=== PATIENT | female | born 2000 | race African-American/Black ===

== ENCOUNTER 2022-08-17 20:20 | Emergency (ER) | payer OTHER, SELFPAY ==
--- NOTE | 2022-08-17 | ECG_ITS ---
Test Reason : AMS Blood Pressure : / mmHG Vent. Rate : 079 BPM Atrial Rate : 079 BPM P-R Int : 224 ms QRS Dur : 076 ms QT Int : 360 ms P-R-T Axes : -08 050 020 degrees QTc Int : 412 ms Sinus rhythm with 1st degree A-V block Otherwise normal ECG No previous ECGs available Referred By: Generic ED Physician Electronically Signed By:SEVERIANO MARTINEZ MD
[2022-08-17 21:24] VITALS: BP 112/77; PULSE 77; RESP 16; TEMP 36.7; O2SAT 100; BMI 37.6
--- NOTE | 2022-08-17 21:56 | ED_ITS ---
HPI - Psych General Chief Complaint: Psychiatric Symptoms Stated Complaint: depression states she wants to kill herselg Time Seen by Provider: 08/17/22 21:52 Source: patient Mode of arrival: ambulatory Limitations: no limitations History of Present Illness HPI Narrative: 22-year-old female presents to the emergency department with feelings of depression and suicidal ideations times a few weeks. Patient reports she does not want to live anymore. However patient does not have a plan. Patient states she just had a baby 2 months ago. She tells me that this is her 2nd baby, she never had issues with depression after the 1st baby. She tells me she feels like this baby does not like her and there was not a connection between them. Baby is currently dad. Patient states she has adequate support at home. Denies HI. Denies visual, auditory, tactile hallucinations. Denies tobacco, alcohol, other drug use. Patient denies any medical complaints at this time. Related Data Home Medications Medication Instructions Recorded Confirmed acetazolamide 500 mg 1 cap PO Q12H 08/17/22 08/17/22 capsule,extended release Allergies Allergy/AdvReac Type Severity Reaction Status Date / Time Unable to Assess Allergy Unverified 08/17/22 21:59 Review of Systems Review of Systems: Constitutional : No Weight loss, No Fever, No Chills, No Fatigue, No Malaise ENT/Mouth : No sore throat, No Rhinorrhea Eyes: No Eye Pain, No Swelling, No Redness Cardiovascular : No Chest Pain, No SOB, No Dyspnea on Exertion, No Orthopnea, No Edema, No Palpitations Respiratory : No Cough, No Sputum, No Wheezing Gastrointestinal : No Nausea, No Vomiting, No Diarrhea, No Constipation, No abdominal Pain, No Hematochezia, No Melena Genitourinary : No Dysuria, No Urinary Frequency, No Hematuria, Musculoskeletal : No joint pain, No Myalgias, No Joint Swelling Skin : No Skin Lesions, No rash Neuro : No Weakness, No Numbness, No Dizziness, No Headache Psych : No Anxiety/Panic, + Depression, + SI, No HI All other systems reviewed and are negative Yes all other systems are reviewed and are negative [facility] Past Medical History Attestation statement: The following information was validated with the patient. Source: old records reviewed and nursing notes reviewed Social History Social History Alcohol intake: never Patient Tobacco Use Status: Never used Tobacco Use of substances other than those prescribed or required for medical reasons: No Advance Directives: No Advance Directives Information Provided: No Patient : No Physical Exam Vital Signs: Vital Signs: Last Vital Signs Temp 97.6 F 08/17/22 22:24 Pulse 72 08/17/22 22:24 Resp 16 08/17/22 22:24 BP 131/71 08/17/22 22:24 Pulse Ox 98 08/17/22 22:24 O2 Del Method 08/17/22 22:24 BMI result Body Mass Index 37.6 vss Appearance: Alert.? Oriented X3.? No acute distress.? Head: Normocephalic, atraumatic, no step-offs or deformities Eyes: Pupils equal, round and reactive to light.? ENT: Pharynx normal.?? Neck: Normal inspection.? Neck supple.? CVS: Normal heart rate and rhythm.? Pulses normal.? Respiratory: No respiratory distress.? Breath sounds normal.? Abdomen: Soft and nontender.? Skin: Skin warm and dry.? Normal skin color.? Normal skin turgor.? Extremities: No lower extremity edema.? No calf ttp. 5/5 strength to bilateral upper and lower extremities Neuro: Oriented X 3.? No motor deficit.? No sensory deficit. CN 2-12 intact Course Reevaluation(s) Reevaluation #1: CBC with a slight normocytic anemia, no reports of active bleeding, chemistry with no acute electrolyte abnormalities requiring intervention. UA clean without infection. Urine toxicology negative. Ethanol negative. COVID negative. EKG demonstrating a sinus rhythm with first-degree AV block. No ST elevations or inversions concerning for ischemia. No previous EKGs to compare with Time: 23:50 Reevaluation #2: At this time patient will be placed in physician observation to allow more time to be evaluated by the behavioral health team I suspect this is likely depression. Will continue to monitor at time observation was started patient common cooperative no acute distress stable vital signs. Time: 23:57 MDM - Psych MDM Narrative Medical decision making narrative: 2158 22 year old female presents w/ depression & SI. Patient is 2 months PE benign Plan med clearance and eval by [facility] Medical Records Attestation: I reviewed the patient's medical records. Lab Data Attestation: I reviewed the patient's lab results. Result diagrams: 08/17/22 21:47 08/17/22 21:47 Labs: Lab Results 08/17/22 08/17/22 08/17/22 Range/Units 21:47 21:47 22:15 WBC 8.7 (4.8-10.8) X10*3/uL RBC 3.69 L (4.20-5.50) X10*6/uL Hgb 10.3 L (12.0-16.0) g/dl Hct 33.5 L (37.0-47.0) % MCV 90.8 (80.0-98.0) fL MCH 27.9 (27.0-33.0) pg MCHC 30.7 L (31.0-35.0) g/dl RDW 14.6 (11.0-16.0) % Plt Count 461 H (160-400) X10*3/uL MPV 8.8 L (9.4-12.3) fL Absolute Nucleated RBC 0.000 (0.0-0.012) X10*3/uL Nucleated RBC % (auto) 0.0 (0.0-0.2) /100WBC Sodium 140 (135-145) mmol/L Potassium 4.3 (3.3-5.1) mmol/L Chloride 110 H (96-108) mmol/L Carbon Dioxide 19 L (22-29) mmol/L Anion Gap 15 (12-20) BUN 13 (9-16) mg/dL Creatinine 0.76 (0.5-1.4) mg/dL Estim Creat Clear Calc 167.6 Estimated GFR > 60 Random Glucose 102 (60-115) mg/dL Calcium 9.4 (8.4-10.2) mg/dL Magnesium 2.0 (1.6-2.6) mg/dL Total Bilirubin 0.9 (0.0-1.0) mg/dL AST 20 (5-31) U/L ALT 28 (0-31) U/L Alkaline Phosphatase 38 L (39-117) U/L Total Protein 7.1 (6.5-8.0) g/dL Albumin 4.3 (3.5-5.0) g/dL Urine Color Yellow Urine Appearance Cloudy Urine pH 6.0 (5.0-9.0) Ur Specific [place] 1.020 (1.005-1.025) Urine Protein Negative (Neg-Trace) mg/dL Urine Glucose (UA) Negative (Negative) mg/dL Urine Ketones Negative (Negative) mg/dL Urine Blood Negative (Negative) Urine Nitrite Negative (Negative) Ur Leukocyte Esterase Small (1+) H (Negative) Urine RBC 0-2 (0-2) /HPF Urine WBC 11-20 H (0-5) /HPF Ur Squamous Epith Cells 11-20 (0-2) /HPF Urine Bacteria 2+ (None Seen) Hyaline Casts 0-2 (0-2) /LPF Urine Opiates Screen (Not Detect) Urine Fentanyl Screen (Not Detect) Ur Barbiturates Screen (Not Detect) Ur Phencyclidine Scrn (Not Detect) Ur Amphetamines Screen (Not Detect) U Benzodiazepines Scrn (Not Detect) Urine Cocaine Screen (Not Detect) U Marijuana (THC) Screen (Not Detect) Ethyl Alcohol < 10 mg/dL COVID-19 (BREANNE) (Negative) COVID-19 Clin Com 08/17/22 08/17/22 Range/Units 22:15 22:22 WBC (4.8-10.8) X10*3/uL RBC (4.20-5.50) X10*6/uL Hgb (12.0-16.0) g/dl Hct (37.0-47.0) % MCV (80.0-98.0) fL MCH (27.0-33.0) pg MCHC (31.0-35.0) g/dl RDW (11.0-16.0) % Plt Count (160-400) X10*3/uL MPV (9.4-12.3) fL Absolute Nucleated RBC (0.0-0.012) X10*3/uL Nucleated RBC % (auto) (0.0-0.2) /100WBC Sodium (135-145) mmol/L Potassium (3.3-5.1) mmol/L Chloride (96-108) mmol/L Carbon Dioxide (22-29) mmol/L Anion Gap (12-20) BUN (9-16) mg/dL Creatinine (0.5-1.4) mg/dL Estim Creat Clear Calc Estimated GFR Random Glucose (60-115) mg/dL Calcium (8.4-10.2) mg/dL Magnesium (1.6-2.6) mg/dL Total Bilirubin (0.0-1.0) mg/dL AST (5-31) U/L ALT (0-31) U/L Alkaline Phosphatase (39-117) U/L Total Protein (6.5-8.0) g/dL Albumin (3.5-5.0) g/dL Urine Color Urine Appearance Urine pH (5.0-9.0) Ur Specific [place] (1.005-1.025) Urine Protein (Neg-Trace) mg/dL Urine Glucose (UA) (Negative) mg/dL Urine Ketones (Negative) mg/dL Urine Blood (Negative) Urine Nitrite (Negative) Ur Leukocyte Esterase (Negative) Urine RBC (0-2) /HPF Urine WBC (0-5) /HPF Ur Squamous Epith Cells (0-2) /HPF Urine Bacteria (None Seen) Hyaline Casts (0-2) /LPF Urine Opiates Screen Not Detected (Not Detect) Urine Fentanyl Screen Not Detected (Not Detect) Ur Barbiturates Screen Not Detected (Not Detect) Ur Phencyclidine Scrn Not Detected (Not Detect) Ur Amphetamines Screen Not Detected (Not Detect) U Benzodiazepines Scrn Not Detected (Not Detect) Urine Cocaine Screen Not Detected (Not Detect) U Marijuana (THC) Screen Not Detected (Not Detect) Ethyl Alcohol mg/dL COVID-19 (BREANNE) Negative (Negative) COVID-19 Clin Com See Note Critical Care Time Critical Care Time Critical Care Time: No Discharge Plan Discharge Clinical Impression: Post depression, AV bloc first degree Patient Disposition: Still a Patient Prescriptions: No Action acetazolamide 500 mg capsule, extended release 1 cap PO Q12H
[2022-08-17 22:02] LABS: Hematocrit 33.5 % (37.0-47.0); Hemoglobin 10.3 g/dl (12.0-16.0); Mean Corpuscular HGB Conc 30.7 g/dl (31.0-35.0); Mean Corpuscular Hemoglobin 27.9 pg (27.0-33.0); Mean Corpuscular Volume 90.8 fL (80.0-98.0); Mean Platelet Volume 8.8 fL (9.4-12.3); Platelet Count 461 X10*3/uL (160-400); Red Blood Count 3.69 X10*6/uL (4.20-5.50); Red Cell Distribution Width 14.6 % (11.0-16.0); White Blood Count 8.7 X10*3/uL (4.8-10.8)
[2022-08-17 22:21] LABS: Alanine Aminotransferase 28 U/L (0-31); Albumin Level 4.3 g/dL (3.5-5.0); Alkaline Phosphatase 38 U/L (39-117); Anion Gap 15 (12-20); Aspartate Amino Transferase 20 U/L (5-31); Bilirubin Total 0.9 mg/dL (0.0-1.0); Blood Urea Nitrogen 13 mg/dL (9-16); Calcium 9.4 mg/dL (8.4-10.2); Carbon Dioxide 19 mmol/L (22-29); Chloride 110 mmol/L (96-108); Creatinine Clr Calc Pharmacy 167.6; Estimated Glomerular Filt Rate > 60; Glucose Random 102 mg/dL (60-115); Potassium 4.3 mmol/L (3.3-5.1); Sodium 140 mmol/L (135-145); Total Protein 7.1 g/dL (6.5-8.0)
[2022-08-17 22:21] LABS: Appearance Urine Cloudy; Color Urine Yellow; Glucose Urine UA Negative (Negative); Leukocyte Esterase Urine Small (1+) (Negative); Nitrite Urine Negative (Negative); UMIC TRIGGER UACC YES; Urine Blood Negative (Negative); Urine Ketones Negative (Negative); Urine Protein Negative (Neg-Trace)
[2022-08-17 22:24] VITALS: BP 131/71; PULSE 72; RESP 16; TEMP 36.4; O2SAT 98
[2022-08-17] MEDS: LORazepam 1 MG TABLET PO (22:25)
[2022-08-17 22:26] LABS: Bacteria Urine 2+ (None Seen); Hyaline Casts Urine 0-2 /LPF (0-2); RBC Urine 0-2 /HPF (0-2); UACC Culture Trigger YES
[2022-08-17 22:33] LABS: Ethanol < 10 mg/dL
[2022-08-17 22:36] LABS: Amphetamine Screen Urine Not Detected (Not Detect); Barbiturates, Urine Not Detected (Not Detect); Benzodiazepines Screen Urine Not Detected (Not Detect); Cannabinoid Screen Urine Not Detected (Not Detect); Cocaine Screen Urine Not Detected (Not Detect); Fentanyl, urine Not Detected (Not Detect); Opiate Screen Urine Not Detected (Not Detect); Phencyclidine Screen Urine Not Detected (Not Detect)
[2022-08-17 22:42] LABS: COVID-19 Test Negative (Negative); IDNOW Serial# 16C4AD1C
--- NOTE | 2022-08-17 22:47 | PHA.MEDREC ---
Pharmacy Consult ? Medication Reconciliation Pharmacy has completed the medication reconciliation.
[2022-08-18] VITALS: BP 119/63; PULSE 71; RESP 16; TEMP 36.2; O2SAT 98
--- NOTE | 2022-08-18 00:05 | PC.NURSE ---
pt said she was hungry ,chicken salad sandwich ,vanilla pudding and jason emilia given ,vs taken ,family member at bedside along with sitter .
--- NOTE | 2022-08-18 01:50 | PC.NURSE ---
Crisis Referral completed at this time.
--- NOTE | 2022-08-18 06:12 | PC.NURSE ---
Patient slept through the night, no distress observed/reported, independent ambulation, patient engaged well with [facility], disposition partial hospitalization program in the morning, mother will come pick her up, discharge paper work is ready, VSS, behavior non concerning, will continue to monitor.
--- NOTE | 2022-08-18 08:28 | PC.NURSE ---
Patient resting, resp unlabored.
[2022-08-18 10:33] VITALS: BP 110/64; PULSE 82; RESP 16; TEMP 36.3; O2SAT 99
== END 2022-08-18 10:58 | disposition home or self-care (01) ==
PROVIDERS: Physician Assistant; Emergency Provider Internal Medicine
DX: O99.345 Other mental disorders complicating the puerperium (principal); F53.0 Postpartum depression; I44.0 Atrioventricular block, first degree; R45.851 Suicidal ideations; D64.9 Anemia, unspecified; Z20.822 Contact with and (suspected) exposure to COVID-19; Z79.899 Other long term (current) drug therapy
CPT/HCPCS: 36415; 80053; 80307; 81001; 82077; 83735; 85027; 87086; 87635; 93005; 99285

== ENCOUNTER 2022-08-18 13:48 | Outpatient (RCR) | payer OTHER, SELFPAY | END 2022-08-18 23:59 | disposition admitted as inpatient to this hospital (09) | LOC: HO.PHPA 13:48 | PROVIDERS: Visit Provider Psychiatry & Neurology Psychiatry | DX: F33.1 Major depressive disorder, recurrent, moderate (principal); F41.1 Generalized anxiety disorder | CPT/HCPCS: 90791 ==

== ENCOUNTER 2022-08-19 18:04 | Inpatient (IN) | payer OTHER, SELFPAY ==
[2022-08-19 19:23] VITALS: BP 146/80; PULSE 80; RESP 18; TEMP 36.8; O2SAT 100; BMI 39.0
[2022-08-19 20:07] LABS: Appearance Urine Cloudy; Color Urine Yellow; Glucose Urine UA Negative (Negative); Leukocyte Esterase Urine Negative (Negative); Nitrite Urine Positive (Negative); UMIC TRIGGER UACC YES; Urine Blood Negative (Negative); Urine Ketones Negative (Negative); Urine Protein Negative (Neg-Trace)
[2022-08-19 20:08] LABS: UPreg QC Valid YES; Urine Pregnancy NEGATIVE (NEGATIVE)
[2022-08-19 20:12] LABS: Bacteria Urine 4+ (None Seen); Hyaline Casts Urine 0-2 /LPF (0-2); RBC Urine 0-2 /HPF (0-2); UACC Culture Trigger YES; WBC Urine 0-5 /HPF (0-5)
[2022-08-19 20:18] LABS: COVID-19 Test Negative (Negative)
[2022-08-19 20:21] LABS: Amphetamine Screen Urine Not Detected (Not Detect); Barbiturates, Urine Not Detected (Not Detect); Benzodiazepines Screen Urine Not Detected (Not Detect); Cannabinoid Screen Urine Not Detected (Not Detect); Cocaine Screen Urine Not Detected (Not Detect); Fentanyl, urine Not Detected (Not Detect); Opiate Screen Urine Not Detected (Not Detect); Phencyclidine Screen Urine Not Detected (Not Detect)
--- NOTE | 2022-08-19 22:15 | ED_ITS ---
HPI - Psych General Chief Complaint: Psychiatric Symptoms Stated Complaint: sent by for evaluation Time Seen by Provider: 08/19/22 22:00 History of Present Illness HPI Narrative: patient is a 22-year-old male presented today with having depression status after giving . Patient has a history of approximately 2 months ago. Not sleeping not eating feeling increasing stress. Patient was evaluated previously. Recommended for outpatient program. However patient got agitated. Patient denies any suicidal homicidal ideation denies any alcohol. Claims the child do fine. She will consult with her father. Patient denies any fever chills cough and production of breath symptoms. Related Data Home Medications Medication Instructions Recorded Confirmed acetazolamide 500 mg 1 cap PO Q12H 08/19/22 08/19/22 capsule,extended release Allergies Allergy/AdvReac Type Severity Reaction Status Date / Time No Known Allergies Allergy Verified 08/19/22 19:26 Review of Systems Review of Systems: No fever no chills no chest pain or shortness breath no nausea no vomiting Yes all other systems are reviewed and are negative [facility] Past Medical History Attestation statement: The following information was validated with the patient. Social History Social History Household Members: Significant Other, Children and Other Household Members Other:: Partner's step-mother Alcohol intake: never Patient Tobacco Use Status: Never used Tobacco Physical Exam Vital Signs: Vital Signs: Last Vital Signs Temp 98.2 F 08/19/22 19:23 Pulse 80 08/19/22 19:23 Resp 18 08/19/22 19:23 BP 146/80 H 08/19/22 19:23 Pulse Ox 100 08/19/22 19:23 O2 Del Method 08/19/22 19:23 BMI result Body Mass Index 39.0 Appearance: Alert. Oriented X3. No acute distress. Eyes: Pupils equal, round and reactive to light. ENT: Pharynx normal. Neck: Normal inspection. Neck supple. No lymph nodes noted. No crepitus CVS: Normal heart rate and rhythm. Pulses normal. Normal S1 and S2 Respiratory: No respiratory distress. Breath sounds normal. No Wheezing. No rales Abdomen: Soft and nontender. No rigidity. No distention. good BS x4 Skin: Skin warm and dry. Normal skin color. Normal skin turgor. Extremities: No lower extremity edema. Neurovascular intact to all extremities. No Lacerations. No Rash Neuro: Oriented X 3. No motor deficit. No sensory deficit. Moving all extermities. No slurred speech. Cranial nerves grossly intact MDM - Psych MDM Narrative Medical decision making narrative: currently medically cleared. Awaiting crisis evaluation. Symptoms likely secondary to depression. Medical Records Attestation: I reviewed the patient's medical records. Lab Data Attestation: I reviewed the patient's lab results. Labs: Lab Results 08/19/22 08/19/22 08/19/22 Range/Units 19:49 19:49 19:49 Urine Color Yellow Urine Appearance Cloudy Urine pH 6.0 (5.0-9.0) Ur Specific [place] 1.020 (1.005-1.025) Urine Protein Negative (Neg-Trace) mg/dL Urine Glucose (UA) Negative (Negative) mg/dL Urine Ketones Negative (Negative) mg/dL Urine Blood Negative (Negative) Urine Nitrite Positive H (Negative) Ur Leukocyte Esterase Negative (Negative) Urine RBC 0-2 (0-2) /HPF Urine WBC 0-5 (0-5) /HPF Ur Squamous Epith Cells 6-10 (0-2) /HPF Urine Bacteria 4+ (None Seen) Hyaline Casts 0-2 (0-2) /LPF Urine Test NEGATIVE (NEGATIVE) Urine Opiates Screen (Not Detect) Urine Fentanyl Screen (Not Detect) Ur Barbiturates Screen (Not Detect) Ur Phencyclidine Scrn (Not Detect) Ur Amphetamines Screen (Not Detect) U Benzodiazepines Scrn (Not Detect) Urine Cocaine Screen (Not Detect) U Marijuana (THC) Screen (Not Detect) COVID-19 (BREANNE) Negative (Negative) COVID-19 Clin Com See Note 08/19/22 Range/Units 19:49 Urine Color Urine Appearance Urine pH (5.0-9.0) Ur Specific [place] (1.005-1.025) Urine Protein (Neg-Trace) mg/dL Urine Glucose (UA) (Negative) mg/dL Urine Ketones (Negative) mg/dL Urine Blood (Negative) Urine Nitrite (Negative) Ur Leukocyte Esterase (Negative) Urine RBC (0-2) /HPF Urine WBC (0-5) /HPF Ur Squamous Epith Cells (0-2) /HPF Urine Bacteria (None Seen) Hyaline Casts (0-2) /LPF Urine Test (NEGATIVE) Urine Opiates Screen Not Detected (Not Detect) Urine Fentanyl Screen Not Detected (Not Detect) Ur Barbiturates Screen Not Detected (Not Detect) Ur Phencyclidine Scrn Not Detected (Not Detect) Ur Amphetamines Screen Not Detected (Not Detect) U Benzodiazepines Scrn Not Detected (Not Detect) Urine Cocaine Screen Not Detected (Not Detect) U Marijuana (THC) Screen Not Detected (Not Detect) COVID-19 (BREANNE) (Negative) COVID-19 Clin Com Discharge Plan Discharge Clinical Impression: Depression Patient Disposition: Still a Patient Prescriptions: No Action acetazolamide 500 mg capsule, extended release 1 cap PO Q12H
[2022-08-20 01:11] VITALS: BP 112/56; PULSE 80; RESP 16; TEMP 36.4; O2SAT 99
--- NOTE | 2022-08-20 02:38 | PC.NURSE ---
Patient in bed appears sleeping, no distress observed/reported, patient engaged well with [facility] clinician, disposition is section 12 inpatient bed search, med rec completed/pending provider's approval, behavior appropriate and non concerning, VSS, will continue to monitor.
--- NOTE | 2022-08-20 09:00 | PC.NURSE ---
pt seen by Care Team, inpatient admission voluntarily signed by pt. RN-RN report given to FERCHO Chang. pt aware of plan. she refused breakfast. pt resting quietly at this time.
[2022-08-20] MEDS: Nitrofurantoin Monohyd/M-Cryst 100 MG CAPSULE PO ×2 (09:21→20:43)
--- NOTE | 2022-08-20 09:58 | PC.NURSE ---
PT awake, compliant with med. PT did not answer when this verse writer attempted to do phys eval. Care Team at bedside.
[2022-08-20 11:26] VITALS: BP 130/57; PULSE 70; TEMP 36.8; O2SAT 99
[2022-08-20 12:01] VITALS: BP 109/58; PULSE 75; RESP 18; TEMP 36.4; O2SAT 100
--- NOTE | 2022-08-20 12:32 | P.HPPS_ITS ---
HPI Date of Service: 08/20/22 Chief Complaint: depression Sources of Information: patient interviewed, chart reviewed and crisis/core team assessment reviewed HPI Subjective Notes: Escobar Warning and Conditional Voluntary Narrative: Ms. Jett is a 22 year-old woman with hx of depression, no previous psychiatric tx or diagnosis who self presented to [facility] [place] ED at request of family. Pt gave to her second child 2 months ago. Since then, family reports that pt has presented as tearful, reporting suicidal ideation along with increase irritability, mood changes, aggression towards partner which is not her baseline. Utox is negative. On the unit, pt presents as withdrawn. She reports she has been feeling depressed, with intermittent suicidal thoughts. She does admit to increase aggression towards partner as well as yelling and slamming things around. She reports mother in law helps with caring with her new born. She reports restless night but over sleeping during the day. She endorses anhedonia, low energy, feeling tired. She denies VH/AH. Past Psychiatric History: Inpt: none OP: none Med trials: none Suicide attempts: none Medical Evaluation Reviewed: Yes Diagnostics Vital Signs (24Hr): Vital Signs - 24 hr 08/20/22 20:40 08/21/22 10:45 Temperature 97.9 F 97.6 F Pulse Rate 86 86 Respiratory Rate 16 14 Blood Pressure 100/57 L 121/57 L Pulse Oximetry 97 98 Oxygen Delivery Method Room Air Room Air BMI result Body Mass Index 39.0 Labs Results: 08/21/22 09:38 Labs: Laboratory Results - last 48 hr 08/19/22 08/19/22 08/19/22 19:49 19:49 19:49 Sodium Potassium Chloride Carbon Dioxide Anion Gap BUN Creatinine Estim Creat Clear Calc Estimated GFR Fasting Glucose Estimat Average Glucose Hemoglobin A1c % Calcium Total Bilirubin AST ALT Alkaline Phosphatase Total Protein Albumin Triglycerides Cholesterol LDL Cholesterol, Calc HDL Cholesterol Vitamin B12 Folate TSH Urine Color Yellow Urine Appearance Cloudy Urine pH 6.0 Ur Specific [place] 1.020 Urine Protein Negative Urine Glucose (UA) Negative Urine Ketones Negative Urine Blood Negative Urine Nitrite Positive H Ur Leukocyte Esterase Negative Urine RBC 0-2 Urine WBC 0-5 Ur Squamous Epith Cells 6-10 Urine Bacteria 4+ Hyaline Casts 0-2 Urine Test NEGATIVE Urine Opiates Screen Urine Fentanyl Screen Ur Barbiturates Screen Ur Phencyclidine Scrn Ur Amphetamines Screen U Benzodiazepines Scrn Urine Cocaine Screen U Marijuana (THC) Screen COVID-19 (BREANNE) Negative COVID-19 [employer] Com See Note 08/19/22 08/21/22 08/21/22 19:49 08:29 09:38 Sodium 139 Potassium 4.3 Chloride 109 H Carbon Dioxide 20 L Anion Gap 14 BUN 13 Creatinine 0.84 Estim Creat Clear Calc 154.6 Estimated GFR > 60 Fasting Glucose 130 H Estimat Average Glucose 91 Hemoglobin A1c % 4.8 Calcium 9.2 Total Bilirubin 0.9 AST 18 ALT 21 Alkaline Phosphatase 42 Total Protein 7.3 Albumin 4.2 Triglycerides 141 Cholesterol 131 LDL Cholesterol, Calc 77 HDL Cholesterol 26 Vitamin B12 Folate TSH 1.95 Urine Color Urine Appearance Urine pH Ur Specific [place] Urine Protein Urine Glucose (UA) Urine Ketones Urine Blood Urine Nitrite Ur Leukocyte Esterase Urine RBC Urine WBC Ur Squamous Epith Cells Urine Bacteria Hyaline Casts Urine Test Urine Opiates Screen Not Detected Urine Fentanyl Screen Not Detected Ur Barbiturates Screen Not Detected Ur Phencyclidine Scrn Not Detected Ur Amphetamines Screen Not Detected U Benzodiazepines Scrn Not Detected Urine Cocaine Screen Not Detected U Marijuana (THC) Screen Not Detected COVID-19 (BREANNE) COVID-19 Contractually 08/21/22 09:38 Sodium Potassium Chloride Carbon Dioxide Anion Gap BUN Creatinine Estim Creat Clear Calc Estimated GFR Fasting Glucose Estimat Average Glucose Hemoglobin A1c % Calcium Total Bilirubin AST ALT Alkaline Phosphatase Total Protein Albumin Triglycerides Cholesterol LDL Cholesterol, Calc HDL Cholesterol Vitamin B12 336 Folate 11.3 TSH Urine Color Urine Appearance Urine pH Ur Specific [place] Urine Protein Urine Glucose (UA) Urine Ketones Urine Blood Urine Nitrite Ur Leukocyte Esterase Urine RBC Urine WBC Ur Squamous Epith Cells Urine Bacteria Hyaline Casts Urine Test Urine Opiates Screen Urine Fentanyl Screen Ur Barbiturates Screen Ur Phencyclidine Scrn Ur Amphetamines Screen U Benzodiazepines Scrn Urine Cocaine Screen U Marijuana (THC) Screen COVID-19 (BREANNE) COVID-19 Contractually Meds/Allergies Meds Home Medications Medication Instructions Recorded Confirmed Type acetazolamide 500 mg 1 cap PO Q12H 08/19/22 08/19/22 History capsule,extended release Allergies Allergies Allergy/AdvReac Type Severity Reaction Status Date / Time No Known Allergies Allergy Verified 08/19/22 19:26 Mental Status Exam Mental Status Exam Narrative: Appearance: casually groomed, fair hygiene in NAD Behavior:cooperative psychomotor:no agitation or retardation noted Speech: clear, normal rate/rhythm/volume, spontaneous Thought process: linear Thought content:no s/s of psychosis, depressed, asking for help Mood: depressed Affect: blunted SI:none HI:none VH/AH:none Delusions:none Insight/judgment:fair x 2. Memory/cog: alert, oriented x 3. Assessment & Plan Assessment & Plan (1) Mood disorder: Status: Acute Code(s): F39 - Unspecified mood [affective] disorder Plan Ms. Jett is a 22 year-old woman with hx of depression but significant mood changes since she gave to her 2 child 2 months ago. Per family pt presents as more irritable, labile, along with pt reporting increase depression and ani cidal ideation. We discussed risks, benefits and alternative treatment options. We discussed that given elements of mood lability along with depression to do combination of mood stabilizer lithium and antidepressant remeron. We discussed possibility that this may be Bipolar disorder rather than unipolar post depression. PLAN 1. Admit to M3, 15 mins checks, CV. 2. Escobar warning given and understands. 3. Start lithium 150mg po daily and remeron 15mg po qhs. Patient educated on: diagnosis Reason for continued inpatient stay Substantial Risk for: harm to self and harm to others
--- NOTE | 2022-08-20 14:31 | PC.NURSE ---
Arielle was admitted to M3 at 1147 from [facility] [place] Pod on CV for treatment of depression.? Precipitant of admission include poor sleep, depression and anxiety following of daughter 2 months ago. Level of consciousness, orientation,? cooperative?Mood is depressed.Affect is anxious. She denies auditory, visual, tactile, other hallucinations. Thought process is slowed but appears organized with no delusions or paranoia apparent She denies Ideation, plan or intent to harm self or others. She reports poor appetite with no recent wt loss or gain. Sleep is poor in that she can fall asleep but struggles with frequent waking. Focus is good. She denies substance Issues with the exception of 3 servings of caffeine daily Medical Issues?include pseudotumor cerebri dx at age 8. 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 She denies physical complaint. She is on 15 min checks for safety.
[2022-08-20] MEDS: acetaZOLAMIDE 250 MG TABLET PO ×2 (15:52→20:43)
--- NOTE | 2022-08-20 17:28 | PC.NURSE ---
Arielle was admitted to M3 at 1147 from [facility] Pod on CV for treatment of depression.? Precipitant of admission include poor sleep, depression and anxiety following of daughter 2 months ago. She is fully oriented, pleasant and cooperative with admission process. Mood is depressed. Affect is anxious. She denies auditory, visual, tactile, other hallucinations. Thought process is slowed but appears organized with no delusions or paranoia apparent. She denies Ideation, plan or intent to harm self or others. She reports poor appetite with no recent wt loss or gain. Sleep is poor in that she can fall asleep but struggles with frequent waking. Focus is good. She denies substance Issues with the exception of 3 servings of caffeine daily Medical Issues?include pseudotumor cerebri dx at age 8. 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 She denies physical complaint. She is on 15 min checks for safety.
[2022-08-20 20:40] VITALS: BP 100/57; PULSE 86; RESP 16; TEMP 36.6; O2SAT 97
[2022-08-21] MEDS: Nitrofurantoin Monohyd/M-Cryst 100 MG CAPSULE PO ×2 (08:56→20:44)
[2022-08-21 09:24] LABS: Estimated Average Glucose 91 mg/dL; Hemoglobin A1c % 4.8 %
[2022-08-21 10:00] LABS: Alanine Aminotransferase 21 U/L (0-31); Albumin Level 4.2 g/dL (3.5-5.0); Alkaline Phosphatase 42 U/L (39-117); Anion Gap 14 (12-20); Aspartate Amino Transferase 18 U/L (5-31); Bilirubin Total 0.9 mg/dL (0.0-1.0); Blood Urea Nitrogen 13 mg/dL (9-16); Calcium 9.2 mg/dL (8.4-10.2); Carbon Dioxide 20 mmol/L (22-29); Chloride 109 mmol/L (96-108); Cholesterol 131 mg/dL; Creatinine Clr Calc Pharmacy 154.6; Estimated Glomerular Filt Rate > 60; Glucose Fasting 130 mg/dL (60-99); HDL Cholesterol 26 mg/dL; LDL Cholesterol Calculated 77 mg/dl; Potassium 4.3 mmol/L (3.3-5.1); Sodium 139 mmol/L (135-145); Total Protein 7.3 g/dL (6.5-8.0); Triglycerides 141 mg/dL
[2022-08-21 10:20] LABS: Thyroid Stimulating Hormone 1.95 uIU/mL (0.32-4.0)
[2022-08-21 10:45] VITALS: BP 121/57; PULSE 86; RESP 14; TEMP 36.4; O2SAT 98
[2022-08-21 10:47] LABS: Folate 11.3 ng/mL (> or = 4.0); Vitamin B12 336 pg/mL (200-900)
--- NOTE | 2022-08-21 13:54 | HO.PSYCHPN ---
Subjective Subjective Date of Service: 08/21/22 Reason For Visit: depression Subjective Notes: Conditional Voluntary Interim History: Pt reports feeling less overhwelmed. She reports she has underlying irritability but not to extend of last 2 months. She denies SI/HI. She denies VH/AH. She reports last night she felt restless, tossing and turning. No behavioral concerns. Medication Compliance: Yes Side effects from medications: No Attending Groups: Yes Review of Systems Review of Systems No fever no chills no chest pain or shortness breath no nausea no vomiting Yes all other systems are reviewed and are negative Mental Status Exam Mental Status Exam Narrative: Appearance: casually groomed, fair hygiene in NAD Behavior:cooperative psychomotor:no agitation or retardation noted Speech: clear, normal rate/rhythm/volume, spontaneous Thought process: linear Thought content:no s/s of psychosis, depressed, asking for help Mood: depressed Affect: blunted SI:none HI:none VH/AH:none Delusions:none Insight/judgment:fair x 2. Memory/cog: alert, oriented x 3. Diagnostics Vital Signs (24Hr): Vital Signs - 24 hr 08/20/22 20:40 08/21/22 10:45 Temperature 97.9 F 97.6 F Pulse Rate 86 86 Respiratory Rate 16 14 Blood Pressure 100/57 L 121/57 L Pulse Oximetry 97 98 Oxygen Delivery Method Room Air Room Air BMI result Body Mass Index 39.0 Labs Results: 08/21/22 09:38 Labs: Laboratory Results - last 48 hr 08/19/22 08/19/22 08/19/22 19:49 19:49 19:49 Sodium Potassium Chloride Carbon Dioxide Anion Gap BUN Creatinine Estim Creat Clear Calc Estimated GFR Fasting Glucose Estimat Average Glucose Hemoglobin A1c % Calcium Total Bilirubin AST ALT Alkaline Phosphatase Total Protein Albumin Triglycerides Cholesterol LDL Cholesterol, Calc HDL Cholesterol Vitamin B12 Folate TSH Urine Color Yellow Urine Appearance Cloudy Urine pH 6.0 Ur Specific [place] 1.020 Urine Protein Negative Urine Glucose (UA) Negative Urine Ketones Negative Urine Blood Negative Urine Nitrite Positive H Ur Leukocyte Esterase Negative Urine RBC 0-2 Urine WBC 0-5 Ur Squamous Epith Cells 6-10 Urine Bacteria 4+ Hyaline Casts 0-2 Urine Test NEGATIVE Urine Opiates Screen Urine Fentanyl Screen Ur Barbiturates Screen Ur Phencyclidine Scrn Ur Amphetamines Screen U Benzodiazepines Scrn Urine Cocaine Screen U Marijuana (THC) Screen COVID-19 (BREANNE) Negative COVID-19 [employer] Com See Note 08/19/22 08/21/22 08/21/22 19:49 08:29 09:38 Sodium 139 Potassium 4.3 Chloride 109 H Carbon Dioxide 20 L Anion Gap 14 BUN 13 Creatinine 0.84 Estim Creat Clear Calc 154.6 Estimated GFR > 60 Fasting Glucose 130 H Estimat Average Glucose 91 Hemoglobin A1c % 4.8 Calcium 9.2 Total Bilirubin 0.9 AST 18 ALT 21 Alkaline Phosphatase 42 Total Protein 7.3 Albumin 4.2 Triglycerides 141 Cholesterol 131 LDL Cholesterol, Calc 77 HDL Cholesterol 26 Vitamin B12 Folate TSH 1.95 Urine Color Urine Appearance Urine pH Ur Specific [place] Urine Protein Urine Glucose (UA) Urine Ketones Urine Blood Urine Nitrite Ur Leukocyte Esterase Urine RBC Urine WBC Ur Squamous Epith Cells Urine Bacteria Hyaline Casts Urine Test Urine Opiates Screen Not Detected Urine Fentanyl Screen Not Detected Ur Barbiturates Screen Not Detected Ur Phencyclidine Scrn Not Detected Ur Amphetamines Screen Not Detected U Benzodiazepines Scrn Not Detected Urine Cocaine Screen Not Detected U Marijuana (THC) Screen Not Detected COVID-19 (BREANNE) COVID-[employer] Com 08/21/22 09:38 Sodium Potassium Chloride Carbon Dioxide Anion Gap BUN Creatinine Estim Creat Clear Calc Estimated GFR Fasting Glucose Estimat Average Glucose Hemoglobin A1c % Calcium Total Bilirubin AST ALT Alkaline Phosphatase Total Protein Albumin Triglycerides Cholesterol LDL Cholesterol, Calc HDL Cholesterol Vitamin B12 336 Folate 11.3 TSH Urine Color Urine Appearance Urine pH Ur Specific [place] Urine Protein Urine Glucose (UA) Urine Ketones Urine Blood Urine Nitrite Ur Leukocyte Esterase Urine RBC Urine WBC Ur Squamous Epith Cells Urine Bacteria Hyaline Casts Urine Test Urine Opiates Screen Urine Fentanyl Screen Ur Barbiturates Screen Ur Phencyclidine Scrn Ur Amphetamines Screen U Benzodiazepines Scrn Urine Cocaine Screen U Marijuana (THC) Screen COVID-19 (BREANNE) COVID-19 [employer] Medications Medications Current Medications Acetaminophen (Acetaminophen 325 Mg Tablet) 650 mg PO Q6H PRN PRN Reason: Headache/Pain Mild Scale (1-3) Al Hydroxide/Mg Hydroxide (Magnesium Hydrox/Alum Hydrox 30 Ml Oral.Susp) 30 ml PO Q6H PRN PRN Reason: Heartburn/Nausea Hydroxyzine HCl (Hydroxyzine Hcl 25 Mg Tablet) 25 mg PO Q6H PRN PRN Reason: Anxiety [place] Carbonate ([place] Carbonate 300 Mg Capsule) 300 mg PO BID [facility] Magnesium Hydroxide (Milk Of Magnesia 30 Ml Oral.Susp) 30 ml PO DAILY PRN PRN Reason: Constipation Mirtazapine (Mirtazapine 15 Mg Tablet) 15 mg PO BEDTIME [facility] Nitrofurantoin Macrocrystals (Nitrofurantoin Monohyd/M-Cryst 100 Mg Capsule) 100 mg PO BID [facility]ON[facility] Stop: 08/22/22 21:01 Last Admin: 08/21/22 08:56 Dose: 100 mg Non-Formulary Medication (Acetazolamide) 1 cap PO Q12H RONI Non-Formulary Medication (Non-Formulary Medication) 500 each PO BID [facility] Trazodone HCl (Trazodone Hcl 50 Mg Tablet) 50 mg PO BEDTIME PRN PRN Reason: Insomnia Allergies Allergies Allergy/AdvReac Type Severity Reaction Status Date / Time No Known Allergies Allergy Verified 08/19/22 19:26 Assessment & Plan Assessment & Plan (1) Mood disorder: Status: Acute Code(s): F39 - Unspecified mood [affective] disorder Plan Ms. Jett is a 22 year-old woman with hx of depression but significant mood changes since she gave to her 2 child 2 months ago. Per family pt presents as more irritable, labile, along with pt reporting increase depression and suicidal ideation. We discussed risks, benefits and alternative treatment options. We discussed that given elements of mood lability along with depression to do combination of mood stabilizer lithium and antidepressant remeron. We discussed possibility that this may be Bipolar disorder rather than unipolar post depression. PLAN 1. Admit to M3, 15 mins checks, CV. 2. Escobar warning given and understands. 3. Start lithium 300mg po BID and remeron 15mg po qhs. 08/21 continue current medications. I spent minutes with the patient and/or on the patient floor today, greater than?50% of which was spent counseling/coordinating care. Reason for contiued inpatient stay Substantial Risk for: harm to self
[2022-08-21] MEDS: Lithium Carbonate 300 MG CAPSULE PO ×2 (14:28→20:44)
[2022-08-21 20:36] VITALS: BP 134/69; PULSE 78; RESP 16; TEMP 36.3; O2SAT 100
[2022-08-21] MEDS: Mirtazapine 15 MG TABLET PO (20:45)
[2022-08-22 08:05] VITALS: BP 126/62; PULSE 68; RESP 16; TEMP 36.6; O2SAT 100
[2022-08-22] MEDS: Nitrofurantoin Monohyd/M-Cryst 100 MG CAPSULE PO ×2 (08:52→22:18)
[2022-08-22] MEDS: Lithium Carbonate 300 MG CAPSULE PO ×2 (08:53→22:18)
--- NOTE | 2022-08-22 11:39 | HO.PSYCHPN ---
Subjective Subjective Date of Service: 08/22/22 Reason For Visit: depression Subjective Notes: Conditional Voluntary Interim History: Pt reports feeling calmer, still depressed. She reports she slept well, better than other times. She denies SI/HI. She has been visible on the unit, no behavioral concerns. No side effects with medications. Medication Compliance: Yes Side effects from medications: No Attending Groups: Yes Review of Systems Acute medical concerns: No Review of Systems Review of Systems No fever no chills no chest pain or shortness breath no nausea no vomiting Yes all other systems are reviewed and are negative Mental Status Exam Mental Status Exam Narrative: Appearance: casually groomed, fair hygiene in NAD Behavior:cooperative psychomotor:no agitation or retardation noted Speech: clear, normal rate/rhythm/volume, spontaneous Thought process: linear Thought content:no s/s of psychosis, depressed, asking for help Mood: depressed Affect: blunted SI:none HI:none VH/AH:none Delusions:none Insight/judgment:fair x 2. Memory/cog: alert, oriented x 3. Diagnostics Vital Signs (24Hr): Vital Signs - 24 hr 08/23/22 08:00 08/23/22 21:04 Temperature 97.7 F 97.8 F Pulse Rate 69 88 Respiratory Rate 18 16 Blood Pressure 108/51 L 129/60 Pulse Oximetry 100 88 L Oxygen Delivery Method Room Air Room Air BMI result Body Mass Index 39.0 Labs Results: 08/21/22 09:38 Medications Medications Current Medications Acetaminophen (Acetaminophen 325 Mg Tablet) 650 mg PO Q6H PRN PRN Reason: Headache/Pain Mild Scale (1-3) Al Hydroxide/Mg Hydroxide (Magnesium Hydrox/Alum Hydrox 30 Ml Oral.Susp) 30 ml PO Q6H PRN PRN Reason: Heartburn/Nausea Hydroxyzine HCl (Hydroxyzine Hcl 25 Mg Tablet) 25 mg PO Q6H PRN PRN Reason: Anxiety [place] Carbonate ([place] Carbonate 300 Mg Capsule) 300 mg PO BID [facility] Last Admin: 08/23/22 20:52 Dose: 300 mg Magnesium Hydroxide (Milk Of Magnesia 30 Ml Oral.Susp) 30 ml PO DAILY PRN PRN Reason: Constipation Mirtazapine (Mirtazapine 15 Mg Tablet) 15 mg PO BEDTIME [facility] Last Admin: 08/23/22 20:52 Dose: 15 mg Non-Formulary Medication (Acetazolamide) 1 cap PO BID [facility] Last Admin: 08/23/22 20:52 Dose: 1 cap Trazodone HCl (Trazodone Hcl 50 Mg Tablet) 50 mg PO BEDTIME PRN PRN Reason: Insomnia Allergies Allergies Allergy/AdvReac Type Severity Reaction Status Date / Time No Known Allergies Allergy Verified 08/19/22 19:26 Assessment & Plan Assessment & Plan (1) Mood disorder: Status: Acute Code(s): F39 - Unspecified mood [affective] disorder Plan Ms. Jett is a 22 year-old woman with hx of depression but significant mood changes since she gave to her 2 child 2 months ago. Per family pt presents as more irritable, labile, along with pt reporting increase depression and suicidal ideation. We discussed risks, benefits and alternative treatment options. We discussed that given elements of mood lability along with depression to do combination of mood stabilizer lithium and antidepressant remeron. We discussed possibility that this may be Bipolar disorder rather than unipolar post depression. PLAN 1. Admit to M3, 15 mins checks, CV. 2. Escobar warning given and understands. 3. Start lithium 300mg po BID and remeron 15mg po qhs. 08/21 continue current medications. 08/22 continue tx. I spent minutes with the patient and/or on the patient floor today, greater than?50% of which was spent counseling/coordinating care. Reason for contiued inpatient stay Substantial Risk for: harm to others and inability to function
[2022-08-22 22:16] VITALS: BP 127/72; PULSE 105; RESP 18; TEMP 36.1
[2022-08-22] MEDS: Mirtazapine 15 MG TABLET PO (22:18)
[2022-08-23 08:00] VITALS: BP 108/51; PULSE 69; RESP 18; TEMP 36.5; O2SAT 100
[2022-08-23] MEDS: Lithium Carbonate 300 MG CAPSULE PO ×2 (09:35→20:52)
--- NOTE | 2022-08-23 11:41 | P.PNPSI_ITS ---
Subjective Subjective Date of Service: 08/23/22 Reason For Visit: depression Subjective Notes: Conditional Voluntary Interim History: Pt observed yelling on the phone to her partner, redirected as she was disrupting other pts. Pt then laying on floor of sensory room. She states chairs to uncomfortable. She reports she is doing better, states she feels calmer. However, observed behaviors does not appear this is the case. She denies SI/HI. No side effects with medications. She reports she is sleeping through the night. She is visible and does attend groups. pending lithium levels. Medication Compliance: Yes Side effects from medications: No Review of Systems Review of Systems No fever no chills no chest pain or shortness breath no nausea no vomiting Yes all other systems are reviewed and are negative Mental Status Exam Mental Status Exam Narrative: Appearance: casually groomed, fair hygiene in NAD Behavior:cooperative psychomotor:no agitation or retardation noted Speech: clear, normal rate/rhythm/volume, spontaneous Thought process: linear Thought content:no s/s of psychosis, depressed, asking for help Mood: depressed Affect: blunted SI:none HI:none VH/AH:none Delusions:none Insight/judgment:fair x 2. Memory/cog: alert, oriented x 3. Diagnostics Vital Signs (24Hr): Vital Signs - 24 hr 08/23/22 08:00 08/23/22 21:04 Temperature 97.7 F 97.8 F Pulse Rate 69 88 Respiratory Rate 18 16 Blood Pressure 108/51 L 129/60 Pulse Oximetry 100 88 L Oxygen Delivery Method Room Air Room Air BMI result Body Mass Index 39.0 Labs Results: 08/21/22 09:38 Medications Medications Current Medications Acetaminophen (Acetaminophen 325 Mg Tablet) 650 mg PO Q6H PRN PRN Reason: Headache/Pain Mild Scale (1-3) Al Hydroxide/Mg Hydroxide (Magnesium Hydrox/Alum Hydrox 30 Ml Oral.Susp) 30 ml PO Q6H PRN PRN Reason: Heartburn/Nausea Hydroxyzine HCl (Hydroxyzine Hcl 25 Mg Tablet) 25 mg PO Q6H PRN PRN Reason: Anxiety [place] Carbonate ([place] Carbonate 300 Mg Capsule) 300 mg PO BID [facility] Last Admin: 08/23/22 20:52 Dose: 300 mg Magnesium Hydroxide (Milk Of Magnesia 30 Ml Oral.Susp) 30 ml PO DAILY PRN PRN Reason: Constipation Mirtazapine (Mirtazapine 15 Mg Tablet) 15 mg PO BEDTIME REPLACED BY [facility] Last Admin: 08/23/22 20:52 Dose: 15 mg Non-Formulary Medication (Acetazolamide) 1 cap PO BID [facility] Last Admin: 08/23/22 20:52 Dose: 1 cap Trazodone HCl (Trazodone Hcl 50 Mg Tablet) 50 mg PO BEDTIME PRN PRN Reason: Insomnia Allergies Allergies Allergy/AdvReac Type Severity Reaction Status Date / Time No Known Allergies Allergy Verified 08/19/22 19:26 Assessment & Plan Assessment & Plan (1) Mood disorder: Status: Acute Code(s): F39 - Unspecified mood [affective] disorder Plan Ms. Jett is a 22 year-old woman with hx of depression but significant mood changes since she gave to her 2 child 2 months ago. Per family pt presents as more irritable, labile, along with pt reporting increase depression and suicidal ideation. We discussed risks, benefits and alternative treatment options. We discussed that given elements of mood lability along with depression to do combination of mood stabilizer lithium and antidepressant remeron. We discussed possibility that this may be Bipolar disorder rather than unipolar post depression. PLAN 1. Admit to M3, 15 mins checks, CV. 2. Escobar warning given and understands. 3. Start lithium 300mg po BID and remeron 15mg po qhs. 08/21 continue current medications. 08/22 continue tx. 08/23 continue tx. will check lithium level tomorrow. I spent minutes with the patient and/or on the patient floor today, greater than?50% of which was spent counseling/coordinating care. Reason for contiued inpatient stay Substantial Risk for: harm to others and inability to function
[2022-08-23] MEDS: Mirtazapine 15 MG TABLET PO (20:52)
[2022-08-23 21:04] VITALS: BP 129/60; PULSE 88; RESP 16; TEMP 36.6; O2SAT 88
[2022-08-24 08:52] VITALS: BP 113/67; PULSE 74; TEMP 36.3; O2SAT 100
[2022-08-24] MEDS: Lithium Carbonate 300 MG CAPSULE PO ×2 (08:56→22:22)
[2022-08-24 09:21] LABS: TSH reflex Free T4 2.28 uIU/mL (0.32-4.0)
--- NOTE | 2022-08-24 12:28 | HO.PSYCHPN ---
Subjective Subjective Date of Service: 08/24/22 Reason For Visit: depression Subjective Notes: 3 Day Interim History: Pt reports feeling less depressed, calmer. She asks to be discharged. We discussed that appointments not set up, still titrating lithium and there was no plan for discharge today as this is first time pt reports she wants to leave AMA. Pt signed 3 day. She later reports she understands rational for staying few more days. She denies SI/HI. No behavioral concerns. Medication Compliance: Yes Side effects from medications: No Review of Systems Review of Systems No fever no chills no chest pain or shortness breath no nausea no vomiting Yes all other systems are reviewed and are negative Mental Status Exam Mental Status Exam Narrative: Appearance: casually groomed, fair hygiene in NAD Behavior:cooperative psychomotor:no agitation or retardation noted Speech: clear, normal rate/rhythm/volume, spontaneous Thought process: linear Thought content:no s/s of psychosis, depressed, asking for help Mood: depressed Affect: blunted SI:none HI:none VH/AH:none Delusions:none Insight/judgment:fair x 2. Memory/cog: alert, oriented x 3. Diagnostics Vital Signs (24Hr): Vital Signs - 24 hr 08/25/22 20:00 Temperature 97.2 F Pulse Rate 86 Respiratory Rate 18 Blood Pressure 130/75 Pulse Oximetry 99 Oxygen Delivery Method Room Air BMI result Body Mass Index 39.0 Labs Results: 08/21/22 09:38 Medications Medications Current Medications Acetaminophen (Acetaminophen 325 Mg Tablet) 650 mg PO Q6H PRN PRN Reason: Headache/Pain Mild Scale (1-3) Al Hydroxide/Mg Hydroxide (Magnesium Hydrox/Alum Hydrox 30 Ml Oral.Susp) 30 ml PO Q6H PRN PRN Reason: Heartburn/Nausea Hydroxyzine HCl (Hydroxyzine Hcl 25 Mg Tablet) 25 mg PO Q6H PRN PRN Reason: Anxiety [place] Carbonate ([place] Carbonate 300 Mg Capsule) 300 mg PO DAILY [facility] Last Admin: 08/26/22 08:41 Dose: 300 mg [place] Carbonate ([place] Carbonate 300 Mg Capsule) 600 mg PO BEDTIME [facility] Last Admin: 08/25/22 20:45 Dose: 600 mg Magnesium Hydroxide (Milk Of Magnesia 30 Ml Oral.Susp) 30 ml PO DAILY PRN PRN Reason: Constipation Mirtazapine (Mirtazapine 15 Mg Tablet) 15 mg PO BEDTIME [facility] Last Admin: 08/25/22 20:44 Dose: 15 mg Non-Formulary Medication (Acetazolamide) 1 cap PO BID [facility] Last Admin: 08/26/22 08:41 Dose: 1 cap Trazodone HCl (Trazodone Hcl 50 Mg Tablet) 50 mg PO BEDTIME PRN PRN Reason: Insomnia Allergies Allergies Allergy/AdvReac Type Severity Reaction Status Date / Time No Known Allergies Allergy Verified 08/19/22 19:26 Assessment & Plan Assessment & Plan (1) Mood disorder: Status: Acute Code(s): F39 - Unspecified mood [affective] disorder Plan Ms. Jett is a 22 year-old woman with hx of depression but significant mood changes since she gave to her 2 child 2 months ago. Per family pt presents as more irritable, labile, along with pt reporting increase depression and suicidal ideation. We discussed risks, benefits and alternative treatment options. We discussed that given elements of mood lability along with depression to do combination of mood stabilizer lithium and antidepressant remeron. We discussed possibility that this may be Bipolar disorder rather than unipolar post depression. PLAN 1. Admit to M3, 15 mins checks, CV. 2. Escobar warning given and understands. 3. Start lithium 300mg po BID and remeron 15mg po qhs. 08/21 continue current medications. 08/22 continue tx. 08/23 continue tx. will check lithium level tomorrow. 08/24 continue tx. lithium level low. I spent minutes with the patient and/or on the patient floor today, greater than?50% of which was spent counseling/coordinating care. Reason for contiued inpatient stay Substantial Risk for: harm to others
[2022-08-24 21:15] VITALS: BP 133/63; PULSE 98; RESP 18; TEMP 36.6; O2SAT 97
[2022-08-24] MEDS: Mirtazapine 15 MG TABLET PO (22:22)
[2022-08-25 08:28] VITALS: BP 134/74; PULSE 69; RESP 20; TEMP 36.2; O2SAT 100
[2022-08-25] MEDS: Lithium Carbonate 300 MG CAPSULE PO (08:29)
--- NOTE | 2022-08-25 13:41 | HO.PSYCHPN ---
Subjective Subjective Date of Service: 08/25/22 Reason For Visit: depression Subjective Notes: Conditional Voluntary and 3 Day Interim History: Pt reports feeling better, she reports less depressed, no SI/HI. Pt reports sleeping better. She is looking forward to see her family. No VH/AH. No behavioral concerns. Medication Compliance: Yes Side effects from medications: No Review of Systems Review of Systems No fever no chills no chest pain or shortness breath no nausea no vomiting Yes all other systems are reviewed and are negative Mental Status Exam Mental Status Exam Narrative: Appearance: casually groomed, fair hygiene in NAD Behavior:cooperative psychomotor:no agitation or retardation noted Speech: clear, normal rate/rhythm/volume, spontaneous Thought process: linear Thought content:no s/s of psychosis, depressed, asking for help Mood: depressed Affect: blunted SI:none HI:none VH/AH:none Delusions:none Insight/judgment:fair x 2. Memory/cog: alert, oriented x 3. Diagnostics Vital Signs (24Hr): Vital Signs - 24 hr 08/25/22 20:00 Temperature 97.2 F Pulse Rate 86 Respiratory Rate 18 Blood Pressure 130/75 Pulse Oximetry 99 Oxygen Delivery Method Room Air BMI result Body Mass Index 39.0 Labs Results: 08/21/22 09:38 Medications Medications Current Medications Acetaminophen (Acetaminophen 325 Mg Tablet) 650 mg PO Q6H PRN PRN Reason: Headache/Pain Mild Scale (1-3) Al Hydroxide/Mg Hydroxide (Magnesium Hydrox/Alum Hydrox 30 Ml Oral.Susp) 30 ml PO Q6H PRN PRN Reason: Heartburn/Nausea Hydroxyzine HCl (Hydroxyzine Hcl 25 Mg Tablet) 25 mg PO Q6H PRN PRN Reason: Anxiety [place] Carbonate ([place] Carbonate 300 Mg Capsule) 300 mg PO DAILY [facility] Last Admin: 08/26/22 08:41 Dose: 300 mg [place] Carbonate ([place] Carbonate 300 Mg Capsule) 600 mg PO BEDTIME [facility] Last Admin: 08/25/22 20:45 Dose: 600 mg Magnesium Hydroxide (Milk Of Magnesia 30 Ml Oral.Susp) 30 ml PO DAILY PRN PRN Reason: Constipation Mirtazapine (Mirtazapine 15 Mg Tablet) 15 mg PO BEDTIME [facility] Last Admin: 08/25/22 20:44 Dose: 15 mg Non-Formulary Medication (Acetazolamide) 1 cap PO BID [facility] Last Admin: 08/26/22 08:41 Dose: 1 cap Trazodone HCl (Trazodone Hcl 50 Mg Tablet) 50 mg PO BEDTIME PRN PRN Reason: Insomnia Allergies Allergies Allergy/AdvReac Type Severity Reaction Status Date / Time No Known Allergies Allergy Verified 08/19/22 19:26 Assessment & Plan Assessment & Plan (1) Mood disorder: Status: Acute Code(s): F39 - Unspecified mood [affective] disorder Plan Ms. Jett is a 22 year-old woman with hx of depression but significant mood changes since she gave to her 2 child 2 months ago. Per family pt presents as more irritable, labile, along with pt reporting increase depression and suicidal ideation. We discussed risks, benefits and alternative treatment options. We discussed that given elements of mood lability along with depression to do combination of mood stabilizer lithium and antidepressant remeron. We discussed possibility that this may be Bipolar disorder rather than unipolar post depression. PLAN 1. Admit to M3, 15 mins checks, CV. 2. Escobar warning given and understands. 3. Start lithium 300mg po BID and remeron 15mg po qhs. 08/21 continue current medications. 08/22 continue tx. 08/23 continue tx. will check lithium level tomorrow. 08/24 continue tx. lithium level low. 08/25 continue tx. I spent minutes with the patient and/or on the patient floor today, greater than?50% of which was spent counseling/coordinating care. Reason for contiued inpatient stay Substantial Risk for: stable for discharge
[2022-08-25 20:00] VITALS: BP 130/75; PULSE 86; RESP 18; TEMP 36.2; O2SAT 99
[2022-08-25] MEDS: Mirtazapine 15 MG TABLET PO (20:44)
[2022-08-25] MEDS: Lithium Carbonate 300 MG CAPSULE 600 MG PO (20:45)
[2022-08-26 06:00] VITALS: BP 143/78; PULSE 101; RESP 18; TEMP 36.2; O2SAT 99
[2022-08-26] MEDS: Lithium Carbonate 300 MG CAPSULE PO (08:41)
--- NOTE | 2022-08-26 11:27 | PM.PSYDC ---
DS: Providers Provider Date of Service: 08/26/22 Date of admission: 08/20/22 11:14 Primary care physician: Unknown Physician DS: Diagnosis Discharge Diagnosis (1) Mood disorder: Status: Acute DS: Medications Discharge Medications Home Medications: Home Medications Medication Instructions Recorded Confirmed acetazolamide 500 mg 1 cap PO Q12H 08/19/22 08/19/22 capsule,extended release Previous Rx's Medication Instructions Recorded lithium carbonate 300 mg capsule 300 mg PO DAILY #30 caps 08/26/22 lithium carbonate 300 mg capsule 600 mg PO BEDTIME #60 caps 08/26/22 mirtazapine 15 mg tablet 15 mg PO BEDTIME #30 tabs 08/26/22 Mental Status Exam Mental Status Exam Narrative: Appearance: casually groomed, fair hygiene in NAD Behavior:cooperative psychomotor:no agitation or retardation noted Speech: clear, normal rate/rhythm/volume, spontaneous Thought process: linear Thought content:no s/s of psychosis, depressed, asking for help Mood: better Affect: brighter SI:none HI:none VH/AH:none Delusions:none Insight/judgment:fair x 2. Memory/cog: alert, oriented x 3. DS: Summary Hospital Course Hospital Course: Subjective Notes: Escobar Warning and Conditional Voluntary Narrative: Ms. Jett is a 22 year-old woman with hx of depression, no previous psychiatric tx or diagnosis who self presented to [facility] ED at request of family. Pt gave to her second child 2 months ago. Since then, family reports that pt has presented as tearful, reporting suicidal ideation along with increase irritability, mood changes, aggression towards partner which is not her baseline. Utox is negative. On the unit, pt presents as withdrawn. She reports she has been feeling depressed, with intermittent suicidal thoughts. She does admit to increase aggression towards partner as well as yelling and slamming things around. She reports mother in law helps with caring with her new born. She reports restless night but over sleeping during the day. She endorses anhedonia, low energy, feeling tired. She denies VH/AH. Past Psychiatric History: Inpt: none OP: none Med trials: none Suicide attempts: none Medical Evaluation Reviewed: Yes HOSPITAL COURSE On the unit, Ms. Jett was admitted on a CV and placed on 15 minutes checks for safety. After discussing risks, benefits and alternative treatment options, pt was started on lithium for mood lability and depression. Her affect gradually presented as less labile, less irritable. She reported feeling calmer, less depressed. No SI/HI. No VH/AH. Collateral information gathered from family who denied safety concerns at time of discharge and agreed that pt appeared in much improved conditions. Pt agreed to continue OP psych services. There were no no incidences of disruptive behaviors nor need for restraints. Status at Discharge Cognitive/behavioral status at discharge: Pt with brighter, less labile affect. No SI/HI. No psychosis, no delusions. No signs of aggression towards self or others. Future oriented looking forward to return home, see family and children and continue OP psych tx. Functional status at discharge: independent ambulation Overall status at discharge: patient is progressing back to baseline Time Spent with Patient Time attestation: Total time managing care of this patient today ____ minutes. Discharge Plan Discharge Anticipated Discharge Date/Time: 08/26/22 09:48 Patient Disposition: Home Health Service Discharge Diagnosis: Mood Disorder r/o Bipolar Disorder Referrals: Yanet Rosales (Therapy) [Other] - 08/28/22 1:30 pm (IN OFFICE APPOINTMENT) Rylee Mckinley (Psychiatry) [Other] - 09/22/22 9:00 am (IN OFFICE APPOINTMENT -You will present to the office and someone will assist you with the appointment that will take place via telehealth. -Psychiatric Evaluation ) Rylee Mckinley (Psychiatry) [Other] - 11/23/22 9:00 am (IN OFFICE APPOINTMENT -You will present to the office and someone will assist you with the appointment that will take place via telehealth. -Medication Management ) [facility] [Provider Group] - 1 Week (Please call in one week to schedule appointment. May use walk in clinic if needed. Patient plans to ask insurance company for assistance in obtaining PCP. ) Discharge Medications: New lithium carbonate 300 mg Capsule 300 mg PO DAILY Qty: 30 0RF lithium carbonate 300 mg Capsule 600 mg PO BEDTIME Qty: 60 0RF mirtazapine 15 mg Tablet 15 mg PO BEDTIME Qty: 30 0RF Continued acetazolamide 500 mg capsule, extended release 1 cap PO Q12H Discharge Orders: Discharge Order (Routine); Ordered 08/26/22 Ordered By: Madhavi Philip Diet: Regular diet Activity on Discharge: As tolerated Stand Alone Forms: Patient Portal Discharge page, Community Support Care Plan Goals: 1. Maintain mood 2. No SI/HI. 3. No aggression towards self or others Health Concerns: Follow up with PCP Plan of Treatment: 1. Take medications as prescribed. 2. Go to nearest ED or call 911 in event of emergency Assessment: Pt with somewhat constricted affect, non labile, does brighten up when socializing with peers. No SI/HI. Sleeping and eating well. No VH/AH. Future oriented. Discharge Date/Time: 08/26/22 12:10
== END 2022-08-26 12:10 | disposition home health service (06) | DRG 753 ==
LOC: HO.ED 08-20 09:59 → HO.PADLT16 08-20 11:25
PROVIDERS: Admitting Provider Social Worker; Emergency Provider Emergency Medicine Emergency Medical Services; Visit Provider Social Worker
DX: F39 Unspecified mood [affective] disorder (principal); R45.851 Suicidal ideations; Z20.822 Contact with and (suspected) exposure to COVID-19; Z23 Encounter for immunization; Z79.899 Other long term (current) drug therapy
CPT/HCPCS: 36415; 80053; 80061; 80178; 80307; 81001; 81025; 82607; 82746; 83036; 84443; 87635; 90686; 99285

== ENCOUNTER 2022-11-10 19:27 | Emergency (ER) | payer OTHER, SELFPAY ==
--- NOTE | ~2022-11-10 | XR_ITS ---
EXAMINATION: XR CHEST CLINICAL INFORMATION: Fever, cough COMPARISON: None TECHNIQUE: Frontal view of the chest was obtained. FINDINGS: No significant abnormality is noted involving the heart, lungs, mediastinum, bony thorax or soft tissues. XR/XR chest 1V IMPRESSION: Unremarkable examination.
[2022-11-10 19:31] VITALS: BP 140/75; PULSE 113; RESP 18; TEMP 37.3; O2SAT 97; BMI 39.0
--- NOTE | 2022-11-10 19:35 | ED.GENADULT ---
HPI - General Adult General Chief complaint: Upper Respiratory Symptoms Stated complaint: chest pain/pressure Time Seen by Provider: 11/10/22 21:09 Related Data Home Medications Medication Instructions Recorded Confirmed acetazolamide 500 mg 1 cap PO Q12H 08/19/22 08/19/22 capsule,extended release Previous Rx's Medication Instructions Recorded lithium carbonate 300 mg capsule 300 mg PO DAILY #30 caps 08/26/22 lithium carbonate 300 mg capsule 600 mg PO BEDTIME #60 caps 08/26/22 mirtazapine 15 mg tablet 15 mg PO BEDTIME #30 tabs 08/26/22 albuterol sulfate 90 mcg/actuation 2 puff inhalation Q4-6H PRN 11/10/22 aerosol inhaler (ProAir HFA) shortness of breath or wheezing #8.5 grams benzonatate 200 mg capsule 200 mg PO TID PRN cough #30 caps 11/10/22 dexamethasone 6 mg tablet 6 mg PO DAILY 6 days #6 tabs 11/10/22 Allergies Allergy/AdvReac Type Severity Reaction Status Date / Time No Known Allergies Allergy Verified 08/19/22 19:26 [facility] Social History Social History Household Members: Significant Other Household Members Other:: SO family Housing: House Do you presently have visiting nurse or other home services: No Alcohol intake: never Patient Tobacco Use Status: Never used Tobacco Substance Use Type: Caffiene Advance Directives: No Advance Directives Information Provided: No service: No Sexual orientation: Straight/Heterosexual Physical Exam ED Vital Signs: Vital Signs - 24 hr 11/10/22 19:31 Temperature 99.1 F Pulse Rate 113 H Respiratory Rate 18 Blood Pressure 140/75 H Pulse Oximetry 97 Oxygen Delivery Method Room Air BMI result Body Mass Index 39.0 Course Course Course Narrative: RME: 22 yold female patient presents to the ED for dry cough, fever, chills, and chest pain. SARS and CHest xray orered Medications Administered Discontinued Medications Generic Name Dose Route Start Last Admin Trade Name Freq PRN Reason Stop Dose Admin Albuterol Sulfate 2 puff 11/10/22 21:33 11/10/22 22:20 Albuterol Sulfate 90 Mcg 8 Gm Inhaler INHALE 11/10/22 21:34 2 puff ONCE ONE Administration Benzonatate 200 mg 11/10/22 21:33 11/10/22 22:20 Benzonatate 100 Mg Capsule PO 11/10/22 21:34 200 mg ONCE ONE Administration Dexamethasone 6 mg 11/10/22 21:33 11/10/22 22:20 Dexamethasone 6 Mg Tablet PO 11/10/22 21:34 6 mg ONCE ONE Administration Medical Decision Making Lab Data Labs: Lab Results 11/10/22 Range/Units 19:42 Influenza Type A (PCR) NEGATIVE (Negative) Influenza Type B (PCR) NEGATIVE (Negative) RSV RNA Qual (PCR) NEGATIVE (Negative) SARS-CoV-2 RNA (RT-PCR) POSITIVE A (Negative) Discharge Plan Discharge Clinical Impression: COVID-19 Patient Disposition: Home, Self-Care Instructions: COVID-19 (Coronavirus Disease 2019) (ED) Additional Instructions: Social distancing as advised Use albuterol inhaler for wheezing/cough Cough drops as prescribed Decadron daily for 6 days Follow-up with PCP if not better or report to the ER if increased shortness of breath Prescriptions: New benzonatate 200 mg capsule 200 mg PO TID PRN (Reason: cough) Qty: 30 0RF dexamethasone 6 mg tablet 6 mg PO DAILY 6 Days Qty: 6 0RF albuterol sulfate [ProAir HFA] 90 mcg/actuation HFA aerosol inhaler 2 puff inhalation Q4-6H PRN (Reason: shortness of breath or wheezing) Qty: 8.5 0RF No Action acetazolamide 500 mg capsule, extended release 1 cap PO Q12H lithium carbonate 300 mg Capsule 300 mg PO DAILY Qty: 30 0RF lithium carbonate 300 mg Capsule 600 mg PO BEDTIME Qty: 60 0RF mirtazapine 15 mg Tablet 15 mg PO BEDTIME Qty: 30 0RF Stand Alone Forms: Work/School Release Interventions: ED Discharge Assessment Last Done: 11/10/22 22:34 Discharge Date/Time: 11/10/22 22:30
[2022-11-10 20:23] LABS: Influenza A PCR NEGATIVE (Negative); Influenza B PCR NEGATIVE (Negative); Resp Syncy Virus RNA Qual PCR NEGATIVE (Negative); SARS COV2 PCR INHOUSE POSITIVE (Negative)
[2022-11-10] MEDS: Albuterol Sulfate 90 MCG 8 GM INHALER 2 PUFF INHALE (22:20)
[2022-11-10] MEDS: Benzonatate 100 MG CAPSULE 200 MG PO (22:20)
[2022-11-10] MEDS: dexAMETHasone 6 MG TABLET PO (22:20)
== END 2022-11-10 22:30 | disposition home or self-care (01) ==
PROVIDERS: Physician Assistant; Emergency Provider Internal Medicine
DX: R07.89 Other chest pain (principal); Z20.822 Contact with and (suspected) exposure to COVID-19; Z20.828 Contact with and (suspected) exposure to other viral communicable diseases; Z79.899 Other long term (current) drug therapy
CPT/HCPCS: 0241U; 71045; 99283; 99284; J8540